=== PATIENT | male | born 1990 | race African-American/Black ===

== ENCOUNTER 2016-11-12 21:36 | Emergency (ER) | payer SELFPAY ==
[~2016-11-12] VITALS: Ht 180.3 cm; Wt 56.5 kg
[~2016-11-12 21:36] MED LIST: ZOFR4TAB3 SL
[2016-11-12 21:43] VITALS: BP 132/75; PULSE 91; RESP 16; TEMP 98.7; O2SAT 99
[2016-11-12] MEDS ORDERED: IBUP-232 PO (23:05)
[2016-11-12] MEDS ORDERED: CYCL1TAB29 PO (23:05)
--- NOTE | 2016-11-12 23:05 | PD ---
HPI Chief Complaint: Pain: Acute or Chronic Time Seen by Provider: 22:33 Travel History International Travel<30 days: Yes Contact w/Intl Traveler<30days: Yes Name of Country Traveled to: [place] Traveled to known affect area: No History of Present Illness HPI Patient is a 25-year-old otherwise healthy male who presents today with left quadriceps pain after working out in the gym doing squats. Patient denies any dysuria abdominal pain testicle pain several anesthesia. Patient states this is not happened to him before. States his pain is worsened when he straightens his legs out or bears weight. Symptoms happened a couple hours prior to arrival and gradually worsened. PFSH Past Medical History Medical History: Denies Significant Hx Hx Anticoagulant Therapy: No Cardiovascular Problems: No Chemotherapy: No Cerebrovascular Accident: No Diabetes: No Diminished Hearing: No Respiratory: No Immunizations Current: No Tetanus Vaccination: Unknown Influenza Vaccination: No Past Surgical History Surgical History: No Previous Surgery Hysterectomy: No Social History Alcohol Use: Yes (Occasionally ) Tobacco Use: No Substance Use: No Allergies-Medications (Allergen,Severity, Reaction): Coded Allergies: No Known Allergies (Verified , 11/12/16) Reported Meds & Prescriptions Reported Meds & Active Scripts Active Flexeril (Cyclobenzaprine HCl) 10 Mg Tab 10 Mg PO TID Ibuprofen 600 Mg Tab 600 Mg PO Q6H PRN Review of Systems Except as stated in HPI: all other systems reviewed are Neg Physical Exam Narrative GENERAL: Well-nourished, well-developed patient. In no apparent distress, thin build. SKIN: Warm and dry. HEAD: Normocephalic. EYES: No scleral icterus. No injection or drainage. NECK: Supple, trachea midline. No JVD or lymphadenopathy. CARDIOVASCULAR: Regular rate and rhythm without murmurs, gallops, or rubs. RESPIRATORY: Breath sounds equal bilaterally. No accessory muscle use. GASTROINTESTINAL: Abdomen soft, non-tender, nondistended. MUSCULOSKELETAL: No cyanosis, or edema. Patient has mild tenderness over his proximal quadriceps on the left, he is able to extend his knee but does have some tenderness against resistance. He also has some tenderness on flexion of the hip against resistance. He is ambulatory in the emergency department, no bony tenderness of the hip knee or ankle on the left. The right lower extremity is normal. There is no bruising. BACK: Nontender without obvious deformity. No CVA tenderness. Data Data Last Documented VS Vital Signs Date Time Temp Pulse Resp B/P Pulse Ox O2 Delivery O2 Flow Rate FiO2 11/12/16 23:26 71 18 127/62 98 Room Air 11/12/16 21:43 98.7 Orders Ibuprofen (Motrin) (11/12/16 23:15) [facility] Medical Decision Making Medical Screen Exam Complete: Yes Emergency Medical Condition: Yes Differential Diagnosis Quadriceps strain, quadriceps sprain, fracture highly unlikely, testicular torsion was considered briefly with excluded clinically. Narrative Course Clinically this patient presents today with signs symptoms highly suggestive of quadriceps strain. Discussed with him symptomatic management and return to ED criteria follow-up with primary care physician. Diagnosis Primary Impression: Quadriceps strain Qualified Code: S76.112A - Quadriceps strain, left, initial encounter Med/Other Pt SpecificInfo: Prescription(s) given Scripts Cyclobenzaprine (Flexeril)10 Mg Tab10 Mg PO TID #20 TAB Ref 0 Prov:Nadir Cotton MD 11/12/16 Ibuprofen 600 Mg [id number] Mg PO Q6H PRN (PAIN SCALE 1 TO 10) #20 TAB Ref 0 Prov:Nadir Cotton MD 11/12/16 Disposition: 01 DISCHARGE HOME Condition: Stable Nadir Cotton MD Nov 12, 2016 23:05
[2016-11-12] MEDS ORDERED: IBUPROFEN 600 MG TAB PO ONE (23:15)
[2016-11-12 23:26] VITALS: BP 127/62; PULSE 71; RESP 18; O2SAT 98
== END 2016-11-12 23:34 | disposition home or self-care (01) ==
LOC: PHED 21:36
DX: S76.112A Strain of left quadriceps muscle, fascia and tendon, initial encounter (principal); X50.3XXA Overexertion from repetitive movements, initial encounter; Y93.B9 Activity, other involving muscle strengthening exercises; Y92.838 Other recreation area as the place of occurrence of the external cause
CPT/HCPCS: 99283